=== PATIENT | female | born 1965 | race Caucasian/White ===

== ENCOUNTER 2018-04-04 05:38 | Day surgery (SDC) | payer OTHER ==
[~2018-04-04] VITALS: Ht 170.2 cm; Wt 65.8 kg
[~2018-04-04 05:38] MED LIST: ALDACTONE50 MG PO; CELEXA 10 MG TA10 M1 PO; ERGOCALCIF50000 UNIT PO; IRON325 PO; MAGOX 400400 MG PO; NEURONTIN 400400 M1 PO; OMEPRAZOLE40 MG PO
[2018-04-04 11:23] LABS: HEMATOCRIT 36.1 % (37.0-47.0); HEMOGLOBIN 11.8 gm/dL (12.0-15.0); MCH 27.9 pg (26.0-34.0); MCHC 32.8 g/dL (28.0-37.0); MCV 85.1 fL (80.0-100.0); RBC 4.24 mil/uL (4.20-5.00); WBC 6.3 thou/uL (4.0-11.0)
[2018-04-04 11:34] LABS: CALCIUM 9.1 mg/dL (8.5-10.1); CREATININE 0.6 mg/dL (0.6-1.0)
[2018-04-04 12:15] VITALS: BP 114/64
== END 2018-04-04 16:50 | disposition home or self-care (01) ==
LOC: TBA 05:38 → OR 05:38
PROVIDERS: Podiatrist Foot & Ankle Surgery
DX: M20.11 Hallux valgus (acquired), right foot (principal); M25.374 Other instability, right foot; M25.571 Pain in right ankle and joints of right foot; M79.671 Pain in right foot; D64.9 Anemia, unspecified; K21.9 Gastro-esophageal reflux disease without esophagitis; Z90.49 Acquired absence of other specified parts of digestive tract; Z98.890 Other specified postprocedural states; Z79.899 Other long term (current) drug therapy
CPT/HCPCS: 50010; 50101; 50386; 50951; 53341; 55430; 56526; 56527; 57091; 57178; 62110; 62900; 70005

== ENCOUNTER 2018-06-27 05:50 | Day surgery (SDC) | payer OTHER ==
[~2018-06-27] VITALS: Ht 170.2 cm; Wt 63.5 kg
[~2018-06-27 05:50] MED LIST changes: +VITAMIN D5000 UNIT PO
[2018-06-27 13:00] VITALS: BP 141/83
== END 2018-06-27 17:50 | disposition home or self-care (01) ==
LOC: TBA 05:50 → OR 05:50 → TBA 05:51 → OR 10:50
DX: M25.374 Other instability, right foot (principal); M20.11 Hallux valgus (acquired), right foot; M20.5X1 Other deformities of toe(s) (acquired), right foot; M79.671 Pain in right foot; M25.571 Pain in right ankle and joints of right foot; K21.9 Gastro-esophageal reflux disease without esophagitis; Z98.890 Other specified postprocedural states; Z90.49 Acquired absence of other specified parts of digestive tract; Z79.899 Other long term (current) drug therapy
CPT/HCPCS: 50010; 50101; 50386; 50951; 51412; 53341; 55430; 56524; 56526; 57091; 57178; 62110; 62900; 70005